=== PATIENT | male | born 1990 | race Caucasian/White ===

== ENCOUNTER 2018-12-13 23:45 | Emergency (ER) | payer SELFPAY ==
[~2018-12-13] VITALS: Ht 175.3 cm; Wt 117.9 kg
[2018-12-13 23:55] VITALS: BP 131/98
[2018-12-14] MEDS ORDERED: KETOROLAC 60 MG/2 ML VIAL IM ONE (01:40)
== END 2018-12-14 02:05 | disposition left against medical advice (07) ==
LOC: MED 23:45
DX: Z53.21 Procedure and treatment not carried out due to patient leaving prior to being seen by health care provider (principal)